=== PATIENT | male | born 2000 | race Caucasian/White ===

== ENCOUNTER 2021-12-11 09:39 | Emergency (ER) | payer SELFPAY ==
[2021-12-11] MEDS ORDERED: DIPHENHYDRAMINE 50 MG/ML VIAL ONE (10:28)
[2021-12-11] MEDS ORDERED: KETOROLAC 30 MG/ML INJ ONE (10:28)
[2021-12-11] MEDS ORDERED: METOCLOPRAMIDE 10 MG/2mL INJ ONE (10:28)
--- NOTE | 2021-12-11 10:32 | RAD REPORT ---
EXAM DESCRIPTION: CT - Head Brain Wo Cont - 12/11/2021 10:25 am CLINICAL HISTORY: Headache, chronic, new features or increased frequency COMPARISON: No comparisons TECHNIQUE: All CT scans are performed using dose optimization technique as appropriate and may inclu de automated exposure control or mA/KV adjustment according to patient size. FINDINGS: No intracranial hemorrhage, hydrocephalus or extra-axial fluid collection.No areas of brai n edema or evidence of midline shift. The paranasal sinuses and mastoids are clear. The calvarium is intact. IMPRESSION: No acute intracranial abnormality.
[2021-12-11] MEDS ORDERED: NA CHLORIDE 0.9% 1,000 ML ONE (10:41)
[2021-12-11 10:43] LABS: Absolute Lymphocytes (CBC) 1.5 K/uL (0.7-4.9); Hematocrit 35.9 % (39.6-49.0); Lymphocytes % 16.1 % (15.3-44.8); MPV 6.8 fL (7.6-11.3); RBC Red Blood Cell Count 4.28 M/uL (4.33-5.43)
[2021-12-11 11:08] LABS: ALT/SGPT 81 U/L (12-78); AST/SGOT 28 U/L (15-37); Albumin 3.3 g/dL (3.4-5.0); Alkaline Phosphatase 89 U/L (45-117); BUN Blood Urea Nitrogen 7 mg/dL (7-18); Bicarbonate 24 mmol/L (21-32); Bilirubin Total 0.4 mg/dL (0.2-1.0); Glucose Level 85 mg/dL (74-106); Potassium 3.7 mmol/L (3.5-5.1); Protein, Total 7.8 g/dL (6.4-8.2); Sodium Level 137 mmol/L (136-145)
[2021-12-11 11:29] LABS: SARS-COV-2 RT PCR NEGATIVE (NEGATIVE)
--- NOTE | 2021-12-11 12:03 | EDPHYS ---
Physician Documentation [facility] Name: Gurjit Aquino Age: 21 yrs Sex: Male : 2000 Arrival Date: 12/11/2021 Time: 09:42 Bed 6 Private MD: ED Physician Trey Kumar HPI: 12/11 10:16 This 21 yrs old Male presents to ER via Ambulatory with complaints of Headache, cold pm1 sweats, Chest Pain. 10:16 The patient complains of pain to the forehead. The patient describes the headache as pm1 aching, constant. Onset: The symptoms/episode began/occurred 3 week(s) ago. Associated signs and symptoms: Pertinent positives: sore throat and chest pain. Severity of symptoms: in the emergency department the pain is actually worse. Headache History: Denies prior headaches. The symptoms are alleviated by nothing. the symptoms are aggravated by nothing. The patient has not experienced similar symptoms in the past. Historical: - Allergies: 10:01 No Known Allergies; jl7 - Home Meds: 10:03 None [Active]; jl7 - PMHx: 10:03 None; jl7 - PSHx: 10:03 None; jl7 - Immunization history:: Adult Immunizations unknown. - Social history:: Smoking status: unknown. ROS: 10:16 Constitutional: Negative for fever, chills, and weight loss, Respiratory: Negative for pm1 shortness of breath, cough, wheezing, and pleuritic chest pain. 10:16 Abdomen/GI: Negative for abdominal pain, nausea, vomiting, diarrhea, and constipation, Back: Negative for injury and pain, MS/Extremity: Negative for injury and deformity, Skin: Negative for injury, rash, and discoloration. 10:16 ENT: Positive for sore throat, Negative for drainage from ear(s), ear pain. 10:16 Cardiovascular: Positive for chest pain, Negative for edema, palpitations. 10:16 Neuro: Positive for headache, Negative for numbness, tingling. 10:16 All other systems are negative. Exam: 10:16 Constitutional: This is a well developed, well nourished patient who is awake, alert, pm1 and in no acute distress. 10:16 Head/Face: Normocephalic, atraumatic. 10:16 Back: No spinal tenderness. No costovertebral tenderness. Full range of motion. Skin: Warm, dry with normal turgor. Normal color with no rashes, no lesions, and no evidence of cellulitis. MS/ Extremity: Pulses equal, no cyanosis. Neurovascular intact. Full, normal range of motion. 10:16 ENT: External ear(s): no acute changes, Ear canal(s): no acute changes, TM's: no acute changes, Nose: no acute changes, Mouth: no acute changes, Lips: normal, moist, Oral mucosa: normal, pink and intact, moist, Posterior pharynx: Airway: no evidence of obstruction, Tonsils: bilaterally enlarged, with erythema, no exudate, no ulcerations, erythema, that is moderate, exudate, is not appreciated, peritonsillar mass, is not appreciated. 10:16 Neck: Lymph nodes: lymphadenopathy is appreciated, anterior cervical nodes. 10:16 Cardiovascular: Exam negative for acute changes, Rate: normal, Rhythm: regular, Pulses: no pulse deficits are appreciated, Heart sounds: normal, normal S1and S2. 10:16 Respiratory: Exam negative for acute changes, respiratory distress, shortness of breath, Breath sounds: are clear throughout. 10:16 Abdomen/GI: Exam negative for acute changes, Inspection: abdomen appears normal, Palpation: abdomen is soft and non-tender, in all quadrants. 10:16 Neuro: Exam negative for acute changes, Orientation: is normal, Mentation: is normal, Motor: is normal, moves all fours. Vital Signs: 09:57 BP 132 / 85; Pulse 102; Resp 15; Temp 97.5; Pulse Ox 100% ; Weight 68.04 kg; Pain 6/10; jl7 12:00 BP 113 / 73; Pulse 76; Resp 12 S; Pulse Ox 100% on R/A; jg9 MDM: 10:05 Patient medically screened. [facility] 11:57 Data reviewed: vital signs. Data interpreted: Pulse oximetry: on room air is 100 %. pm1 Interpretation: normal. Counseling: I had a detailed discussion with the patient and/or guardian regarding: the historical points, exam findings, and any diagnostic results supporting the discharge/admit diagnosis, lab results, radiology results, the need for outpatient follow up, to return to the emergency department if symptoms worsen or persist or if there are any questions or concerns that arise at home. 12/11 10:15 Order name: [place] Screen Profile; Complete Time: 11:02 pm1 12/11 10:17 Order name: Group A Streptococcus Rapid Sc; Complete Time: 11:07 EDMS 12/11 10:24 Order name: CBC with Diff; Complete Time: 11:02 pm1 12/11 10:24 Order name: CMP; Complete Time: 11:47 pm1 12/11 10:15 Order name: CT Head Brain wo Cont; Complete Time: 11:02 pm1 12/11 10:24 Order name: Troponin High Sensitivity; Complete Time: 11:47 pm1 12/11 10:24 Order name: COVID-19/FLU A+B (Document "Date of Onset" if Symptomatic); Complete Time: pm1 11:47 12/11 11:05 Order name: Throat Culture EDSC 12/11 10:24 Order name: EKG; Complete Time: 10:24 pm1 12/11 10:24 Order name: EKG - Nurse/Tech; Complete Time: 10:35 pm1 Administered Medications: 10:35 Drug: Ketorolac 30 mg Route: IVP; Site: right antecubital; mondragon 10:36 Follow up: Response: No adverse reaction mondragon 10:35 Drug: Reglan (metoCLOPramide) 10 mg Route: IVP; Site: right antecubital; mondragon 10:36 Follow up: Response: No adverse reaction mondragon 10:35 Drug: Benadryl (diphenhydrAMINE) 25 mg Route: IVP; Site: right antecubital; mondragon 10:35 Follow up: Response: No adverse reaction mondragon 10:38 Drug: NS 0.9% 1000 ml Route: IV; Rate: 1000 ml; Site: right antecubital; mondragon 12:10 Follow up: IV Status: Completed infusion; IV Intake: 1000ml jg9 Disposition Summary: 12/11/21 12:03 Discharge Ordered Location: Home pm1 Problem: new pm1 Symptoms: have improved pm1 Condition: Stable pm1 Diagnosis - Infectious mononucleosis, unspecified without complication pm1 - Headache pm1 - Chest pain, unspecified pm1 Followup: pm1 - With: Emergency Department - When: As needed - Reason: Worsening of condition Followup: pm1 - With: Private Physician - When: 2 - 3 days - Reason: Recheck today's complaints, Continuance of care, Re-evaluation by your physician Discharge Instructions: - Discharge Summary Sheet pm1 - General Headache Without Cause pm1 - Infectious Mononucleosis pm1 - Pharyngitis pm1 Forms: - Medication Reconciliation Form pm1 - Thank You Letter pm1 - Antibiotic Education pm1 - Prescription Opioid Use pm1 Prescriptions: - [id number] - take 1 tablet by ORAL route every 4 hours As needed; 20 tablet; Refills: 0, pm1 Product Selection Permitted Addendum: 12/17/2021 07:56 Co-signature as Attending Physician, Trey Kumar MD I agree with the assessment and c mondragon plan of care. Signatures: Dispatcher [employer] EDSC Trey Kumar MD MD cha Marinas, Patrick, LEAD LEVEL DESIGNER LEAD LEVEL DESIGNER pm1 Dominga Solis RN RN jl7 Lilia Klein RN RN mondragon Sana Diamond RN jg9
--- NOTE | 2021-12-11 12:03 | ER ---
Nurse's Notes [facility] Name: Gurjit Aquino Age: 21 yrs Sex: Male : 2000 Arrival Date: 12/11/2021 Time: 09:42 Bed 6 Private MD: Diagnosis: Infectious mononucleosis, unspecified without complication;Headache;Chest pain, unspecified Presentation: 12/11 09:57 Chief complaint: Patient states: MCCARTNEY x 3 weeks, radiates from forehead to shoulders, jl7 intermittent chest pain x 1 year, a slight sore throat x 1 day. Coronavirus screen: At this time, the client does not indicate any symptoms associated with coronavirus-19. Ebola Screen: No symptoms or risks identified at this time. Initial Sepsis Screen: Does the patient meet any 2 criteria? No. Patient's initial sepsis screen is negative. Does the patient have a suspected source of infection? No. Patient's initial sepsis screen is negative. Risk Assessment: Do you want to hurt yourself or someone else? Patient reports no desire to harm self or others. Onset of symptoms is unknown. 09:57 Method Of Arrival: Ambulatory jl7 09:57 Acuity: RENAE 3 jl7 Triage Assessment: 10:01 Headache History: The patient has had previous headaches and this one is more severe jl7 than previous episodes. General: Appears in no apparent distress. uncomfortable, Behavior is calm, cooperative, appropriate for age. Pain: Complains of pain in mccartney Pain radiates to left trapezius and right trapezius Pain currently is 6 out of 10 on a pain scale. Pain began x 3 weeks Also complains of no other associated symptoms. EENT: Throat is reddened. Neuro: Level of Consciousness is awake, alert, obeys commands, Oriented to person, place, time, situation. Cardiovascular: Patient's skin is warm and dry. Respiratory: Airway is patent Respiratory effort is even, unlabored, Respiratory pattern is regular, symmetrical. Derm: Skin is pink, warm \\T\\ dry. Historical: - Allergies: 10:01 No Known Allergies; jl7 - Home Meds: 10:03 None [Active]; jl7 - PMHx: 10:03 None; jl7 - PSHx: 10:03 None; jl7 - Immunization history:: Adult Immunizations unknown. - Social history:: Smoking status: unknown. Screenin:11 Abuse screen: Denies threats or abuse. Denies injuries from another. Nutritional mccartney screening: No deficits noted. Tuberculosis screening: No symptoms or risk factors identified. Fall Risk None identified. Assessment: 10:11 Pain: Complains of pain in chest,head pain. mccartney 10:12 Neuro: No deficits noted. Level of Consciousness is awake, alert, obeys commands, mccartney Oriented to person, place, time, situation, Reports headache. Cardiovascular: Reports chest pain, shortness of breath, Chest pain. Respiratory: Reports shortness of breath at rest Airway is patent Breath sounds are clear bilaterally. 12:10 Reassessment: Patient is alert, oriented x 3, equal unlabored respirations, skin jg9 warm/dry/pink. Patient states feeling better. Patient states symptoms have improved. Vital Signs: 09:57 BP 132 / 85; Pulse 102; Resp 15; Temp 97.5; Pulse Ox 100% ; Weight 68.04 kg; Pain 6/10; jl7 12:00 BP 113 / 73; Pulse 76; Resp 12 S; Pulse Ox 100% on R/A; jg9 ED Course: 09:42 Patient arrived in ED. am2 09:52 Del Sommers, CLINICAL INFORMATICS SPECIALIST is PHCP. pm1 09:52 Trey Kumar MD is Attending Physician. pm1 10:01 Triage completed. jl7 10:01 Arm band placed on right wrist. jl7 10:08 Lilia Klein, RN is Primary Nurse. mccartney 10:11 Patient has correct armband on for positive identification. Bed in low position. mccartney 10:11 No provider procedures requiring assistance completed. mccartney 10:27 CT Head Brain wo Cont In Process Unspecified. EDMS 10:35 COVID-19/FLU A+B (Document "Date of Onset" if Symptomatic) Sent. mccartney 10:36 Group A Streptococcus Rapid Sc Sent. mccartney 12:24 IV discontinued, intact, Pressure dressing applied. mccartney Administered Medications: 10:35 Drug: Ketorolac 30 mg Route: IVP; Site: right antecubital; mccartney 10:36 Follow up: Response: No adverse reaction mccartney 10:35 Drug: Reglan (metoCLOPramide) 10 mg Route: IVP; Site: right antecubital; mccartney 10:36 Follow up: Response: No adverse reaction mccartney 10:35 Drug: Benadryl (diphenhydrAMINE) 25 mg Route: IVP; Site: right antecubital; mccartney 10:35 Follow up: Response: No adverse reaction mccartney 10:38 Drug: NS 0.9% 1000 ml Route: IV; Rate: 1000 ml; Site: right antecubital; mccartney 12:10 Follow up: IV Status: Completed infusion; IV Intake: 1000ml jg9 Intake: 12:10 IV: 1000ml; Total: 1000ml. jg9 Outcome: 12:03 Discharge ordered by pm1 12:24 Discharged to home mccartney 12:24 Condition: good 12:24 Discharge instructions given to patient. 12:24 Patient left the ED. mccartney Signatures: Dispatcher [employer] EDDel Huffman NP CLINICAL INFORMATICS SPECIALIST pm1 Dominga Solis RN RN jl7 Marjorie Duvall Jennifer, RN RN jg9 Lilia Klein RN RN mccartney
[2021-12-11 12:31] VITALS: TEMP 97.5; O2SAT 100
[2021-12-11 12:32] VITALS: BP 113/73
== END 2021-12-11 12:24 | disposition home or self-care (01) ==
LOC: ER 09:39
DX: B27.90 Infectious mononucleosis, unspecified without complication (principal); R07.9 Chest pain, unspecified; Z20.822 Contact with and (suspected) exposure to COVID-19
CPT/HCPCS: 0240U; 36415; 70450; 80053; 84484; 85025; 86308; 87070; 87081; 93005; 96361; 96374; 96375; 99283; J1200; J2765; J7030

== ENCOUNTER 2022-01-04 16:25 | Emergency (ER) | payer SELFPAY ==
[2022-01-04 19:29] LABS: Absolute Lymphocytes (CBC) 1.4 K/uL (0.7-4.9); Hematocrit 30.4 % (39.6-49.0); Lymphocytes % 20.4 % (15.3-44.8); MPV 6.9 fL (7.6-11.3); RBC Red Blood Cell Count 3.61 M/uL (4.33-5.43)
[2022-01-04 19:31] LABS: Bilirubin Total 0.4 mg/dL (0.2-1.0); Potassium 3.5 mmol/L (3.5-5.1); Protein, Total 7.9 g/dL (6.4-8.2)
[2022-01-04] MEDS ORDERED: NA CHLORIDE 0.9% 1,000 ML ONE (19:44)
--- NOTE | 2022-01-04 20:07 | RAD REPORT ---
EXAM DESCRIPTION: RAD - Chest Single View - 01/04/2022 8:01 pm CLINICAL HISTORY: CHEST PAIN Chest pain. COMPARISON: No comparisons FINDINGS: Portable technique limits examination quality. The lungs are grossly clear. The heart is normal in size. No displaced fractures. IMPRESSION: No acute intrathoracic process suspected.
[2022-01-04 20:48] LABS: Thyroid Stimulating Hormone 0.588 uIU/mL (0.360-3.740)
[2022-01-04 21:08] LABS: Urine Blood Negative (Negative); Urine Glucose Negative (Negative); Urine Protein Negative (Negative); Urine Specific Gravity 1.015 (1.005-1.030); Urine pH 6.5 (5.0-7.0)
[2022-01-04 21:44] LABS: Urine Bacteria <20 /HPF (NONE SEEN); Urine RBC NONE SEEN /HPF (NONE SEEN)
--- NOTE | 2022-01-04 22:02 | EDPHYS ---
Physician Documentation [facility] Name: Gurjit Aquino Age: 22 yrs Sex: Male : 2000 Arrival Date: 01/04/2022 Time: 16:28 Bed 8 Private MD: ED Physician Jovanni Sanchez HPI: 01/04 21:12 This 22 yrs old Male presents to ER via Ambulatory with complaints of Abdominal Pain, rn chest pain, weakness. 21:12 Pt reports generalized malaise and weakness, 2 days ago felt tightness in chest like rn "ribs were being squeezed", then felt mid abdominal pain for a couple of hours. No fever/chills/sob/cough/vomiting/diarrhea. Symptoms resolved 2 days ago, didn't have a ride so came in today when had a ride. No discomfort today. Reports feels generalized weakness and fatigue. No bloody or dark stool. . Onset: The symptoms/episode began/occurred 2 day(s) ago. Severity of symptoms: At their worst the symptoms were mild in the emergency department the symptoms have improved. The patient has not experienced similar symptoms in the past. The patient has not recently seen a physician. Historical: - Allergies: 16:35 No Known Allergies; jb4 - Home Meds: 16:35 None [Active]; jb4 - PMHx: 16:35 None; jb4 - PSHx: 16:35 None; jb4 - Immunization history:: Adult Immunizations not up to date. - Social history:: Smoking status: Patient reports the use of cigarette tobacco products, smokes .25 packs per day. - Family history:: not pertinent. - Hospitalizations: : No recent hospitalization is reported. ROS: 21:12 Constitutional: Negative for fever, chills, and weight loss, Eyes: Negative for injury, rn pain, redness, and discharge, Neck: Negative for injury, pain, and swelling, Cardiovascular: Negative for current chest pain, palpitations, and edema, Respiratory: Negative for shortness of breath, cough, wheezing, and pleuritic chest pain, Abdomen/GI: Negative for current abdominal pain, nausea, vomiting, diarrhea, and constipation, Back: Negative for injury and pain, : Negative for injury, bleeding, discharge, and swelling, MS/Extremity: Negative for injury and deformity, Skin: Negative for injury, rash, and discoloration, Neuro: Negative for headache, numbness, tingling, and seizure. Exam: 21:12 Constitutional: This is a well developed, well nourished patient who is awake, alert, rn and in no acute distress. Head/Face: Normocephalic, atraumatic. Eyes: Pupils equal round and reactive to light, extra-ocular motions intact. Lids and lashes normal. Conjunctiva and sclera are non-icteric and not injected. Cornea within normal limits. Periorbital areas with no swelling, redness, or edema. ENT: dry MM Cardiovascular: Regular rate and rhythm . No pulse deficits. Respiratory: No increased work of breathing, no retractions or nasal flaring. Abdomen/GI: Soft, non-tender, with normal bowel sounds. No distension or tympany. No guarding or rebound. No evidence of tenderness throughout. Skin: Warm, dry MS/ Extremity: Pulses equal, no cyanosis. Neuro: Awake and alert, GCS 15, oriented to person, place, time, and situation. Cranial nerves II-XII grossly intact. Motor strength 5/5 in all extremities. Sensory grossly intact. Cerebellar exam normal. Normal gait. Vital Signs: 16:30 BP 106 / 69; Pulse 111; Resp 16; Temp 98.7(O); Pulse Ox 99% on R/A; Weight 58.97 kg jb4 (R); Height 5 ft. 11 in. (180.34 cm) (R); Pain 0/10; 21:10 BP 103 / 73; Pulse 87; Resp 18 S; Pulse Ox 99% on R/A; al4 22:30 BP 115 / 73; Pulse 95; Resp 18; Pulse Ox 100% on R/A; ll3 16:30 Body Mass Index 18.13 (58.97 kg, 180.34 cm) jb4 MDM: 19:00 Patient medically screened. rn 22:00 Differential Diagnosis dehydration, anxiety, thyroid dysfunction, anemia, GERD, acid rn reflux. Data reviewed: vital signs, nurses notes, lab test result(s), EKG, radiologic studies, plain films, and as a result, I will discharge patient. Counseling: I had a detailed discussion with the patient and/or guardian regarding: the historical points, exam findings, and any diagnostic results supporting the discharge/admit diagnosis, lab results, radiology results, the need for outpatient follow up, to return to the emergency department if symptoms worsen or persist or if there are any questions or concerns that arise at home. Response to treatment: the patient's symptoms have mildly improved after treatment, and as a result, I will discharge patient. Special discussion: I discussed with the patient/guardian in detail that at this point there is no indication for admission to the hospital. It is understood, however, that if the symptoms persist or worsen the patient needs to return immediately for re-evaluation. Based on the history and exam findings, there is no indication for further emergent testing or inpatient evaluation. I discussed with the patient/guardian the need to see the primary care provider for further evaluation of the symptoms. ED course: NO acute findings other than mild anemia, stable vitals, better after fluids, will dc home with instructions to f/u with pcp for anemia w/u. Recommend daily multivitamin with iron for now and given return precautions.. 01/04 18:44 Order name: CBC with Diff; Complete Time: 20: [facility] 01/04 18:44 Order name: CMP; Complete Time: 20: [facility] 01/04 18:44 Order name: Lipase; Complete Time: 20: [facility] 01/04 19:30 Order name: TSH; Complete Time: 21: 01/04 19:30 Order name: T4 Free; Complete Time: 21:11 01/04 19:31 Order name: Urine Microscopic Only; Complete Time: 22:02 01/04 18:44 Order name: IV Saline Lock; Complete Time: 18:53 [facility] 01/04 18:44 Order name: Labs collected and sent; Complete Time: 18:53 [facility] 01/04 19:30 Order name: EKG; Complete Time: 19:31 01/04 19:30 Order name: EKG - Nurse/Tech; Complete Time: 21:14 01/04 19:31 Order name: XRAY Chest (1 view); Complete Time: 20: 01/04 21:09 Order name: Urine Dipstick-Ancillary; Complete Time: 21:11 [facility] 01/04 21:30 Order name: Glucose, Ancillary Testing; Complete Time: 22:02 [facility] 01/04 19:30 Order name: Glucose Level; Complete Time: 21: 01/04 19:30 Order name: Cardiac monitoring; Complete Time: 21:14 rn 01/04 19:31 Order name: Urine Dipstick-Ancillary (obtain specimen); Complete Time: 21:14 rn Administered Medications: 21:22 Drug: NS 0.9% 1000 ml Route: IV; Rate: 1000 ml; Site: right antecubital; al4 22:30 Follow up: Response: No adverse reaction; IV Status: Completed infusion; IV Intake: ll3 1000ml Disposition Summary: 01/04/22 22:01 Discharge Ordered Location: Home rn Problem: new rn Symptoms: have improved rn Condition: Stable rn Diagnosis - Other malaise and fatigue rn - Anemia, unspecified rn Followup: rn - With: Private Physician - When: As needed - Reason: Recheck today's complaints, Re-evaluation by your physician Discharge Instructions: - Discharge Summary Sheet rn - Anemia rn Forms: - Medication Reconciliation Form rn - Thank You Letter rn - Antibiotic rn medical inpatient services - Prescription Opioid Use rn Prescriptions: - Nystatin-Triamcinolone 100,000-0.1 unit/g-% Topical Cream - apply 1 application by TOPICAL route 2 times per day; 1 tube; Refills: 0, rn Product Selection Permitted Signatures: Dispatcher [employer] EDMS Misha Ellis MD MD kdr Jovanni Sanchez MD MD rn Bryson, James, RN RN Julien Ackerman Lynsea RN ll3 Corrections: (The following items were deleted from the chart) 21:15 21:12 Constitutional: Negative for fever, chills, and weight loss, Eyes: Negative for rn injury, pain, redness, and discharge, Neck: Negative for injury, pain, and swelling, Cardiovascular: Negative for current chest pain, palpitations, and edema, Respiratory: Negative for shortness of breath, cough, wheezing, and pleuritic chest pain, Abdomen/GI: Negative for current abdominal pain, nausea, vomiting, diarrhea, and constipation, Back: Negative for injury and pain, : Negative for injury, bleeding, discharge, and swelling, MS/Extremity: Negative for injury and deformity, Skin: Negative for injury, rash, and discoloration, Neuro: Negative for headache, weakness, numbness, tingling, and seizure, rn
--- NOTE | 2022-01-04 22:02 | ER ---
Nurse's Notes [facility] Name: Gurjit Aquino Age: 22 yrs Sex: Male : 2000 Arrival Date: 01/04/2022 Time: 16:28 Bed 8 Private MD: Diagnosis: Other malaise and fatigue;Anemia, unspecified Presentation: 01/04 16:30 Chief complaint: Patient states: 2 nights ago I felt like my rib cage was pressing in jb4 on itself. It started back up last night. My stomach just feels like someone started punching me. I thought it was the melatonin I took last night. My eye sight is also very blurry, it started 3 days ago. It has progressively gotten worse. Last bm was 4-5 days ago, and it was hard. No nausea/vomiting. I noticed scabs on my penis as well that have been there for about a month when I was diagnosed with mono. Coronavirus screen: At this time, the client does not indicate any symptoms associated with coronavirus-19. Ebola Screen: No symptoms or risks identified at this time. Initial Sepsis Screen: Does the patient meet any 2 criteria? HR > 90 bpm. Yes Does the patient have a suspected source of infection? No. Patient's initial sepsis screen is negative. Risk Assessment: Do you want to hurt yourself or someone else? Patient reports no desire to harm self or others. Onset of symptoms was January 01, 2022. Transition of care: patient was not received from another setting of care. 16:30 Method Of Arrival: Ambulatory jb4 16:30 Acuity: RENAE 3 jb4 Historical: - Allergies: 16:35 No Known Allergies; jb4 - Home Meds: 16:35 None [Active]; jb4 - PMHx: 16:35 None; jb4 - PSHx: 16:35 None; jb4 - Immunization history:: Adult Immunizations not up to date. - Social history:: Smoking status: Patient reports the use of cigarette tobacco products, smokes .25 packs per day. - Family history:: not pertinent. - Hospitalizations: : No recent hospitalization is reported. Screenin:16 Abuse screen: Denies threats or abuse. Nutritional screening: No deficits noted. ll1 Tuberculosis screening: No symptoms or risk factors identified. 22:29 Fall Risk No fall in past 12 months (0 pts). No secondary diagnosis (0 pts). IV access ll3 (20 points). Ambulatory Aid- None/Bed Rest/Nurse Assist (0 pts). Gait- Normal/Bed Rest/Wheelchair (0 pts) Mental Status- Oriented to own ability (0 pts). Total Douglas Fall Scale indicates No Risk (0-24 pts). Assessment: 18:18 General: Appears uncomfortable, Behavior is cooperative, appropriate for age. Pain: ll1 Complains of pain in abdomen Quality of pain is described as aching, crampy. GI: Reports lower abdominal pain, upper abdominal pain. : Reports sores on penis. EENT: Reports blurred vision. Derm: Reports rash. 20:58 General: Appears in no apparent distress. uncomfortable, Behavior is cooperative, al4 anxious, patient states he had pain in his abdomen last night that felt like "someone was punching me" for 3 hours, but denies pain at this time. patient also complaining of dizziness, "fainty", and blurry vision. patient states he is feeling better at this time but wanted to come get checked out. . Pain: Denies pain. Neuro: Level of Consciousness is awake, alert, obeys commands, Oriented to person, place, time, situation. Cardiovascular: Patient's skin is warm and dry. Respiratory: Airway is patent Respiratory effort is even, unlabored, Respiratory pattern is regular, symmetrical. GI: Bowel sounds present X 4 quads. Abd is soft and non tender X 4 quads. : No signs and/or symptoms were reported regarding the genitourinary system. EENT: Reports blurred vision. Derm: Reports "dry spot" on penis and mono rash on body. Vital Signs: 16:30 BP 106 / 69; Pulse 111; Resp 16; Temp 98.7(O); Pulse Ox 99% on R/A; Weight 58.97 kg jb4 (R); Height 5 ft. 11 in. (180.34 cm) (R); Pain 0/10; 21:10 BP 103 / 73; Pulse 87; Resp 18 S; Pulse Ox 99% on R/A; al4 22:30 BP 115 / 73; Pulse 95; Resp 18; Pulse Ox 100% on R/A; ll3 16:30 Body Mass Index 18.13 (58.97 kg, 180.34 cm) jb4 ED Course: 16:28 Patient arrived in ED. mr 16:35 Triage completed. jb4 16:35 Arm band placed on right wrist. jb4 16:46 Misha Ellis MD is Attending Physician. kdr 18:16 Víctor Marc, ANTONIO is Primary Nurse. ll1 18:17 Patient placed in an exam room, on a stretcher. ll1 18:17 Patient has correct armband on for positive identification. Bed in low position. Call ll1 light in reach. Side rails up X 1. Cardiac monitoring not applicable on this patient. 18:58 Inserted saline lock: 22 gauge in right antecubital area, using aseptic technique. ll1 Blood collected. 19:00 Jovanni Sanchez MD is Attending Physician. rn 20:03 XRAY Chest (1 view) In Process Unspecified. EDMS 21:13 Urine Microscopic Only Sent. al4 22:28 No provider procedures requiring assistance completed. IV discontinued, intact, ll3 bleeding controlled, No redness/swelling at site. Pressure dressing applied. Administered Medications: 21:22 Drug: NS 0.9% 1000 ml Route: IV; Rate: 1000 ml; Site: right antecubital; al4 22:30 Follow up: Response: No adverse reaction; IV Status: Completed infusion; IV Intake: ll3 1000ml Intake: 22:30 IV: 1000ml; Total: 1000ml. ll3 Outcome: 22:01 Discharge ordered by . rn 22:28 Discharged to home ambulatory. ll3 22:28 Condition: stable 22:28 Discharge instructions given to patient, Instructed on discharge instructions, follow up and referral plans. medication usage, Demonstrated understanding of instructions, follow-up care, medications, Prescriptions given X 1. 22:30 Patient left the ED. ll3 Signatures: Dispatcher [employer] EDMS Misha Ellis MD MD [facility] franc[facility] mr Jovanni Sanchez MD MD rn Bryson, James, RN RN jb4 Víctor Marc, ANTONIO ALVAREZ ll1 Juan Mclean RN RN ll3 Julien Honeycutt al4 Corrections: (The following items were deleted from the chart) 16:37 16:30 Chief complaint: Patient states: 2 nights ago I felt like my rib cage was jb4 pressing in on itself. It started back up last night. My stomach just feels like someone started punching me. I thought it was the melatonin I took last night. My eye sight is also very blurry, it started 3 days ago. It has progressively gotten worse. Last bm was 4-5 days ago, and it was hard. No nausea/vomiting. jb4 18:17 18:16 Patient placed in an exam room, on a stretcher, ll1 ll1
[2022-01-04 23:32] VITALS: TEMP 98.7; O2SAT 99
[2022-01-04 23:33] VITALS: BP 103/73
--- NOTE | 2022-01-05 07:30 | EKG ---
Test Date: 2022-01-04 Test Time: 21:10:09 Insulation Batting Machine Operator: STEPHY MEASUREMENT RESULTS: Intervals: Rate: 90 CO: 150 QRSD: 86 QT: 334 QTc: 408 [place]: P: 67 CO: 150 QRS: 87 T: 82 INTERPRETIVE STATEMENTS: Normal sinus rhythm Normal ECG Compared to ECG 12/11/2021 10:11:43 Right-axis deviation no longer present Electronically Signed On 01-05-22 07:29:47 CDT by Samson Warren
== END 2022-01-04 22:30 | disposition home or self-care (01) ==
LOC: ER 16:25
DX: R53.81 Other malaise (principal); R53.83 Other fatigue; D64.9 Anemia, unspecified; F17.210 Nicotine dependence, cigarettes, uncomplicated
CPT/HCPCS: 36415; 71045; 80053; 81003; 81015; 82947; 83690; 84439; 84443; 85025; 93005; 96360; 99284; J7030